=== PATIENT | male | born 1995 | race Caucasian/White ===

== ENCOUNTER 2016-08-10 15:31 | Emergency (ER) | payer MEDICAID ==
[2016-08-10] MEDS ORDERED: 0.9 % SODIUM CHLORIDE 1,000 ML BAG IV ONE (15:54)
--- NOTE | 2016-08-10 16:00 | Emergency Department Record ---
History of Present Illness - General Chief Complaint: Abdominal Pain Stated Complaint: ABD PAIN 2 MONTHS NOW HAVING HEART PAIN Time Seen by Provider: 08/10/16 15:54 Source: Patient, Family Mode of Arrival: Ambulatory Limitations: No limitations - History of Present Illness Initial Comments: 21 yo male presents with 2 months abdomen pain. The pain is upper abdomen and spreads all over the abdomen. It does seem to be worse soon after eating. He had a left inguinal hernia repair as an infant. No fevers. No blood in stools. He has vomited a few times over the last 2 months. He smokes and occasionally drinks alcohol. He denies OTC NSAIDS. NO PCP. MD Complaint: Abdominal pain Onset/Timin -: Minutes(s) Location: Diffuse, Epigastric Radiation: Epigastric Migration to: Epigastric Severity: Moderate Quality: Aching Consistency: Constant Improves With: Rest Worsens With: Eating - Related Data Previous Rx's Medication Instructions Recorded Ranitidine HCl [Zantac] 150 mg PO BID #60 tablet 08/10/16 Allergies Allergy/AdvReac Type Severity Reaction Status Date / Time No Known Drug Allergies Allergy Verified 08/10/16 15:53 Travel Screening - Travel/Exposure Within Last 30 Days Have you traveled within the last 30 days?: No - Travel/Exposure Within Last Year Have you traveled outside the [place] in the last year?: No - Additonal Travel Details Have you been exposed to anyone with a communicable illness?: No - Travel Symptoms Symptom Screening: None Review of Systems Constitutional: Denies: Chills, Fever, Malaise, Weakness Eyes: Denies: Eye discharge, Eye pain, Photophobia, Vision change ENT: Denies: Congestion, Throat pain Respiratory: Denies: Cough, Dyspnea, Hemoptysis, Stridor, Wheezes Cardiovascular: Denies: Chest pain, Palpitations, Syncope Endocrine: Denies: Fatigue, Polydipsia, Polyuria Gastrointestinal: Reports: Abdominal pain, Nausea, Vomiting. Denies: Constipation, Diarrhea, Hematemesis, Hematochezia, Melena Genitourinary: Denies: Dysuria, Frequency, Hematuria Musculoskeletal: Denies: Arthralgia, Back pain, Joint swelling Skin: Denies: Bruising, Change in color, Rash Neurological: Denies: Confusion, Headache Psychiatric: Denies: Anxiety Hematological/Lymphatic: Denies: Anemia, Blood Clots, Easy bleeding, Easy bruising, Swollen glands Past Medical History - SOCIAL HISTORY Smoking Status: Current every day smoker Alcohol Use: Occassional Drug Use Detail:: Marijuana - RESPIRATORY Hx Respiratory Disorders: No - CARDIOVASCULAR Hx Palpitations: Yes (with energy drinks) - NEURO Hx Neuro Disorders: No - GI Hx Reflux: Yes - Hx Genitourinary Disorders: No - ENDOCRINE Hx Diabetes: No Hx Thyroid Disease: No - MUSCULOSKELETAL Hx Musculoskeletal Disorders: No - PSYCH Comment:: insomnia - HEMATOLOGY/ONCOLOGY Hx Hematology/Oncology Disorders: No Family Medical History Any Significant Family History?: Yes Hx Cancer: Grandparents Hx Resp Disorders: Grandparents Physical Exam - General General Appearance: Alert, Oriented x3, Cooperative, No acute distress Limitations: No limitations - Head Head exam: Atraumatic, Normocephalic, Normal inspection - Eye Eye exam: Normal appearance, PERRL. negative: Conjunctival injection, Periorbital swelling, Scleral icterus - ENT ENT exam: Normal exam, Mucous membranes moist Ear exam: Normal external inspection Nasal Exam: Normal inspection Mouth exam: Normal external inspection Teeth exam: Normal inspection Throat exam: Normal inspection - Neck Neck exam: Normal inspection - Respiratory Respiratory exam: Normal lung sounds bilaterally. negative: Decreased breath sounds, Respiratory distress, Rhonchi, Stridor, Wheezes - Cardiovascular Cardiovascular Exam: Regular rate, Normal rhythm, Normal heart sounds - GI/Abdominal GI/Abdominal exam: Soft, Normal bowel sounds, Tenderness (mid abdomen is saft but some tenderness on dep palpation). negative: Diminished bowel sounds, Distended, Guarding, Hernia, Hyperactive bowel sounds, Hypoactive bowel sounds, Mass, Organomegaly, Rebound - Rectal Rectal exam: Deferred - exam: Deferred - Extremities Extremities exam: Normal inspection, Full ROM, Normal capillary refill. negative: Tenderness - Back Back exam: Reports: Normal inspection, Full ROM. Denies: CVA tenderness (R), CVA tenderness (L), Muscle spasm, Paraspinal tenderness, Rash noted, Tenderness , Vertebral tenderness - Neurological Neurological exam: Alert, Normal gait, Oriented X3 - Psychiatric Psychiatric exam: Normal affect, Normal mood. negative: Agitated, Anxious - Skin Skin exam: Dry, Intact, Normal color, Warm Course Vital Signs 08/10/16 15:41 Temperature 97.9 F Pulse Rate [ 84 Pulse Ox Probe] Respiratory 14 Rate Blood Pressure 123/79 [Left Arm] Pulse Ox 96 - Reevaluation(s) Reevaluation #1: No acute changes on the CBC or CMP, Lipase. 08/10/16 16:40 Reevaluation #2: The CT scan is negative except for a few non specific lymph nodes. DC home with referral for follow for a new PCP We discussed home care, reasons to return and follow up recommendations 08/10/16 18:15 Medical Decision Making - Lab Data Result diagrams: 08/10/16 16:10 08/10/16 16:10 Disposition Disposition: Discharge Clinical Impression: Epigastric pain Disposition: Home, Self-Care Condition: (1) Good Instructions: Epigastric Pain (ED) Additional Instructions: Call for a new family doctor this week Return if you have uncontrolled pain, vomiting, fever or any new concerns. Avoid alcohol, over the counter ibuprofen/Motrin, and energy drinks Take the Zantac twice daily. Prescriptions: Ranitidine HCl [Zantac] 150 mg PO BID #60 tablet Referrals: LUCA MCGRAW M.D. [MEDICAL DOCTOR] - Forms: Patient Portal Access Time of Disposition: 18:19
[2016-08-10 16:22] LABS: BASO % 0.7 % (0-6); EOS % 3.8 % (0-6); GRAN % 58.7 % (47-80); HEMATOCRIT 42.1 % (42.0-52.0); LYMPH % 25.4 % (16-45); MEAN CELL VOLUME 92.1 fl (81-97); MEAN CORPUSCULAR HEMOGLOBIN 30.6 pg (27-33); MEAN CORPUSCULAR HGB CONC 33.3 g/dl (32-36); MEAN PLATELET VOLUME 9.3 fl (7.4-10.4); MONO % 11.4 % (0-9); PLATELET COUNT 328 K/uL (130-400); RED BLOOD COUNT 4.57 M/uL (4.40-5.70); WHITE BLOOD COUNT W/O DIFF 7.4 K/uL (4.2-12.2)
[2016-08-10 16:28] LABS: ANION GAP 11.3 (7-16); BLOOD UREA NITROGEN 12 mg/dL (9-20); CARBON DIOXIDE 26.7 mmol/L (22-30); CREATININE 0.9 mg/dL (0.66-1.25); EST GLOMERULAR FILTRATION RATE > 60 ml/min; GLUCOSE,RANDOM 105 mg/dL (70-110)
[2016-08-10 16:31] LABS: AST/SGOT 32 U/L (17-59); BILIRUBIN,TOTAL 0.31 mg/dL (0.2-1.3)
[2016-08-10 16:32] LABS: ALBUMIN 4.5 gm/dL (3.5-5.0); LIPASE 73 U/L (23-300); TOTAL PROTEIN 7.6 gm/dL (6.3-8.2)
[2016-08-10 16:34] LABS: ALT/SGPT 55 U/L (21-72)
[2016-08-10 17:31] LABS: URINE APPEARANCE CLEAR; URINE COLOR YELLOW; URINE GLUCOSE (UA) NEGATIVE (NEGATIVE)
[2016-08-10 17:32] LABS: URINE BILIRUBIN NEGATIVE (NEGATIVE); URINE BLOOD NEGATIVE (NEGATIVE); URINE KETONE NEGATIVE (NEGATIVE); URINE LEUKOCYTE ESTERASE NEGATIVE (NEGATIVE); URINE NITRITE NEGATIVE (NEGATIVE); URINE PROTEIN NEGATIVE (NEGATIVE); URINE UROBILINOGEN 0.2 E.U./dL (0.20 - 1.00)
[2016-08-10 17:59] LABS: ALKALINE PHOSPHATASE 68 U/L (38-126)
== END 2016-08-10 18:29 | disposition home or self-care (01) ==
LOC: ER 15:31
DX: R10.13 Epigastric pain (principal)
CPT/HCPCS: 74177; 80048; 80076; 81003; 83690; 85025; 99284; J7030

== ENCOUNTER 2016-09-19 16:13 | Emergency (ER) | payer MEDICAID ==
--- NOTE | 2016-09-19 17:19 | Emergency Department Record ---
History of Present Illness - General Chief Complaint: Recheck - Other Stated Complaint: RE CHECK Time Seen by Provider: 09/19/16 17:12 Source: Patient Mode of arrival: Ambulatory Limitations: No limitations - History of Present Illness Initial Comments: The patient broke his collarbone 2 weeks ago and now wants to know if he can go back to work. He denies any other issues. He was initially seen at [facility] but has not follow up with an ORthopedic surgeon. MD Complaint: Wound re-check Onset/Timin -: Week(s) Initial Visit For: Other Symptoms Since Prior Visit: Worsening pain Associated Symptoms: None - Related Data Home Medications Medication Instructions Recorded Confirmed Last Taken No Home Med [NO HOME MEDS] 09/19/16 09/19/16 Unknown Allergies Allergy/AdvReac Type Severity Reaction Status Date / Time No Known Drug Allergies Allergy Verified 09/19/16 16:54 Travel Screening - Travel/Exposure Within Last 30 Days Have you traveled within the last 30 days?: No - Travel/Exposure Within Last Year Have you traveled outside the [place] in the last year?: No - Additonal Travel Details Have you been exposed to anyone with a communicable illness?: No - Travel Symptoms Symptom Screening: None Past Medical History - SOCIAL HISTORY Smoking Status: Former smoker Alcohol Use: Occassional Drug Use Detail:: Marijuana - RESPIRATORY Hx Respiratory Disorders: No - CARDIOVASCULAR Hx Cardio Disorders: Yes Hx Palpitations: Yes (with energy drinks) - NEURO Hx Neuro Disorders: No - GI Hx GI Disorders: Yes Hx Reflux: Yes - Hx Genitourinary Disorders: No - ENDOCRINE Hx Diabetes: No Hx Thyroid Disease: No - MUSCULOSKELETAL Hx Musculoskeletal Disorders: No - PSYCH Hx Psych Problems: Yes Comment:: insomnia - HEMATOLOGY/ONCOLOGY Hx Hematology/Oncology Disorders: No Family Medical History Any Significant Family History?: Yes Hx Cancer: Grandparents Hx Resp Disorders: Grandparents Physical Exam - General General Appearance: Alert, Oriented x3, Cooperative, No acute distress - Head Head exam: Atraumatic, Normocephalic, Normal inspection - Neck Neck exam: Normal inspection, Full ROM. negative: Tenderness - Respiratory Respiratory exam: Normal lung sounds bilaterally. negative: Respiratory distress - Cardiovascular Cardiovascular Exam: Regular rate, Normal rhythm, Normal heart sounds - Extremities Extremities exam: Normal inspection, Other (There is tendernes over the R clavicle with no specific swelling.) Course Vital Signs 09/19/16 16:57 Temperature 98.3 F Pulse Rate 90 Respiratory 20 Rate Blood Pressure 137/86 Pulse Ox 96 - Reevaluation(s) Reevaluation #1: I did discuss the plan with the patient. He is to see his PCP in 2 weeks for recheck or F/U with an Orthopedic surgeon as planned. 09/19/16 18:41 Medical Decision Making - Data Complexity MDM Data: X-Ray Ordered and/or Reviewed - Radiology Data Radiology results: Image reviewed (R Clavicle: Mid clavicle fx with no significant change from 09/12/16.) Disposition Disposition: Discharge Clinical Impression: Clavicle fracture, shaft Qualifiers: Encounter type: initial encounter Fracture type: closed Fracture alignment: nondisplaced Laterality: right Qualified Code(s): S42.024A - Nondisplaced fracture of shaft of right clavicle, initial encounter for closed fracture Disposition: Home, Self-Care Condition: (1) Good Instructions: Clavicle Fracture (ED) Additional Instructions: Please continue your previous instructions and see your PCP in 2 weeks as planned. Forms: Patient Portal Access Time of Disposition: 18:15
== END 2016-09-19 18:23 | disposition home or self-care (01) ==
LOC: ER 16:13
DX: S42.024D Nondisplaced fracture of shaft of right clavicle, subsequent encounter for fracture with routine healing (principal)
CPT/HCPCS: 99283